=== PATIENT | female | born 1975 | race Caucasian/White ===

== ENCOUNTER → 2016-11-14 | Outpatient (CLI) | payer OTHER | LOC: MC.RAD 09:40 | DX: Z12.31 Encounter for screening mammogram for malignant neoplasm of breast (principal); N63 Unspecified lump in breast ==

== ENCOUNTER → 2016-11-18 | Outpatient (CLI) | payer OTHER | LOC: MC.RAD 09:30 | DX: N63 Unspecified lump in breast (principal) ==

== ENCOUNTER → 2016-11-27 | Outpatient (CLI) | payer OTHER | LOC: MC.RAD 08:30 | DX: N64.89 Other specified disorders of breast (principal); N63 Unspecified lump in breast ==

== ENCOUNTER → 2018-01-28 | Outpatient (CLI) | payer OTHER | LOC: MC.RAD 08:01 | DX: Z12.31 Encounter for screening mammogram for malignant neoplasm of breast (principal) ==

== ENCOUNTER → 2019-03-04 | Outpatient (CLI) | payer OTHER | LOC: MC.RAD 09:49 | DX: Z12.31 Encounter for screening mammogram for malignant neoplasm of breast (principal); Z98.82 Breast implant status ==

== ENCOUNTER → 2020-03-15 | Outpatient (CLI) | payer OTHER | LOC: MC.RAD 09:08 | DX: Z12.31 Encounter for screening mammogram for malignant neoplasm of breast (principal) ==

== ENCOUNTER → 2021-05-04 | Outpatient (CLI) | payer OTHER | LOC: MC.RAD 09:00 | DX: Z12.31 Encounter for screening mammogram for malignant neoplasm of breast (principal); N64.89 Other specified disorders of breast ==

== ENCOUNTER → 2021-05-11 | Outpatient (CLI) | payer OTHER | LOC: MC.RAD 07:00 | DX: N64.89 Other specified disorders of breast (principal) ==